=== PATIENT | female | born 1950 | race Caucasian/White ===

== ENCOUNTER 2020-05-07 09:47 | Outpatient (CLI) | payer MEDICARE, OTHER, SELFPAY ==
--- NOTE | 2020-05-07 10:00 | MM_ITS ---
WS: [id number] DIAGNOSTIC LEFT DIGITAL MAMMOGRAM WITH CAD HISTORY: HX OF BREAST CA COMPARISON: 05/02/2018 and 07/05/2016 TECHNIQUE: LEFT craniocaudad, mediolateral oblique, and mediolateral views are submitted. Computer ai ded detection utilized. Breast composition: There are scattered areas of fibroglandular density. 4 mm area of increased densi ty in the anterior LEFT breast seen best on the CC projection. On the lateral projections at or just above the nipple line. MM/[place] [id number] IMPRESSION: BI-RADS: 0-Incomplete: Need additional imaging evaluation FOLLOW UP: Need Additional Imaging LEFT breast: Spot compression views (CC and MLO). True ML. Ultrasound to follow if abnormality persists.
== END 2020-05-07 09:48 | disposition home or self-care (01) ==
LOC: RADSHAW 09:55
PROVIDERS: PCP Family Medicine; Visit Provider Obstetrics & Gynecology
DX: Z85.3 Personal history of malignant neoplasm of breast (principal)
CPT/HCPCS: 77065; 77066

== ENCOUNTER → 2022-12-01 08:32 | Outpatient (BNVA) | payer MEDICARE, SELFPAY | PROVIDERS: PCP Family Medicine; Visit Provider Family Medicine | DX: R10.13 Epigastric pain (principal); Z85.3 Personal history of malignant neoplasm of breast | CPT/HCPCS: 80053; 80061; 84443; 85025; 85651; 86140; 86304 ==

== ENCOUNTER 2022-12-24 06:47 | Outpatient (CLI) | payer MEDICARE, SELFPAY ==
--- NOTE | 2022-12-24 07:00 | US_ITS ---
WS: [id number] Complete ABDOMINAL ULTRASOUND HISTORY: epigastric pain COMPARISON: None available. Liver: 12.3 cm in length. Normal size liver. There are 2 hepatic cysts. The largest in the central li elena measures 2.2 x 1.7 x 2.5 cm. There is a smaller cyst towards the diaphragmatic surface. No solid mass. No bile duct dilatation. Portal Vein: Normal hepatopetal flow with monophasic waveform. Gallbladder: Normally distended gallbladder. There is an elongated gallbladder with no stones or wall thickening. CBD: 0.2 cm Pancreas: Normal size and echogenicity. Right kidney: 9.5 cm x 5.1 x 3.8 cm. Cortex:1.0 cm. Normal size and echogenicity. No hydronephrosis or mass. Left kidney: 11.1 cm x 3.9 cm x 4.6 cm. Cortex: 1.1 cm. Small cortical cyst lower pole measures 1.3 x 1.4 x 0.9 cm. No solid mass and no obstruction. Spleen: Normal size and echogenicity. Aorta and IVC: Mild atherosclerosis aorta. US/US abdomen complete* [id number] Impression: 1. Normal appearance of the gallbladder. No stones or wall thickening. 2. No bile duct dilatation. 3. Small hepatic cysts and LEFT renal cysts. No solid masses.
== END 2022-12-24 06:48 | disposition home or self-care (01) ==
LOC: RAD 06:52
PROVIDERS: PCP Family Medicine; Visit Provider Clinical Nurse Specialist Adult Health
DX: R10.13 Epigastric pain (principal); K76.89 Other specified diseases of liver
CPT/HCPCS: 76700

== ENCOUNTER → 2024-07-16 08:10 | Outpatient (BNVA) | payer OTHER, SELFPAY | PROVIDERS: PCP Family Medicine; Visit Provider Family Medicine | DX: Z00.00 Encounter for general adult medical examination without abnormal findings (principal) | CPT/HCPCS: 80053; 80061; 85025 ==

== ENCOUNTER → 2024-11-16 14:17 | Outpatient (BNVA) | payer OTHER, SELFPAY | PROVIDERS: PCP Family Medicine; Visit Provider Family Medicine | DX: R05.3 Chronic cough (principal); J84.10 Pulmonary fibrosis, unspecified | CPT/HCPCS: 71046 ==

== ENCOUNTER 2025-04-29 10:47 | Outpatient (CLI) | payer OTHER, SELFPAY ==
--- NOTE | 2025-04-29 10:50 | XRR_ITS ---
PROCEDURE INFORMATION: Exam: XR Left Calcaneus Exam date and time: 04/29/2025 11:05 AM Age: 75 years old Clinical indication: Pain; Heel; Bilateral; Additional info: Bilateral heel pain TECHNIQUE: Imaging protocol: Radiologic exam of the left calcaneus. Views: 2 or more views. COMPARISON: No relevant prior studies available. FINDINGS: Bones/joints: No acute fracture. Normal joint alignment. Plantar calcaneal enthesophytes. Soft tissues: Normal. XR/XR calcaneus LT min 2V [id number] IMPRESSION: No acute osseous abnormality.
--- NOTE | 2025-04-29 10:50 | XRR_ITS ---
PROCEDURE INFORMATION: Exam: XR Right Calcaneus Exam date and time: 04/29/2025 11:05 AM Age: 75 years old Clinical indication: Pain; Heel; Bilateral; Additional info: Bilateral heel pain TECHNIQUE: Imaging protocol: Radiologic exam of the right calcaneus. Views: 2 or more views. COMPARISON: No relevant prior studies available. FINDINGS: Bones/joints: No acute fracture. Normal joint alignment. Plantar calcaneal enthesophytes. Soft tissues: Normal. XR/XR calcaneus RT min 2V [id number] IMPRESSION: No acute osseous abnormality.
== END 2025-04-29 10:48 | disposition home or self-care (01) ==
LOC: RAD 10:48
PROVIDERS: PCP Family Medicine; Visit Provider Family Medicine
DX: M79.671 Pain in right foot (principal); M79.672 Pain in left foot
CPT/HCPCS: 73650